=== PATIENT | female | born 1970 | race African-American/Black ===

== ENCOUNTER 2016-08-29 19:57 | Emergency (ER) ==
[2016-08-29] MEDS ORDERED: PHENERGAN IM ONE (22:29)
[2016-08-29] MEDS ORDERED: DILAUDID IM ONE (22:29)
--- NOTE | 2016-08-29 22:31 | PROVIDER DOCUMENTATION ---
HPI-Musculoskeletal Pain/Inj - GENERAL Chief Complaint: Neck Pain Stated Complaint: EXRREMITY PAIN(RIGHT SIDE) Time Seen by Provider: 08/29/16 22:26 - HX OF PRESENT ILLNESS-MUSKULOSKELTAL Nature of Presenting Problem: 46 yof chronic neck pain. Quality of Pain: reports: aching, sharp Severity in ED: moderate Onset/Duration: other (chronic) Timing: still present, getting worse Modifying Factors: improves with: analgesics Any recent injury?: No Locality of Occurance: Home Similar Symptoms Previously?: Yes (chronic pain) Recently seen or treated by another doctor?: No - FALL INJURY Location of Pain/Injury: reports: neck Pain Radiation: reports: arm(s) Reason for Fall: denies: unknown, fainted, lightheaded, lost balance, slipped, tripped, other - BACK & NECK PAIN/INJURY Back/Neck Pain Location: reports: C-spine Back/Neck Pain Radiation: reports: arm(s). denies: headache, shoulders, Buttocks, Upper Legs, Lower Legs, Feet, Other Context / Method of Injury: denies: unknown, direct blow, fall, lifting, motor vehicle crash, overuse, prior injury, twisted, other Associated Symptoms: reports: numbness in upper ext, weakness in upper ext. denies: denies symptoms, loss of bladder control, loss of bowel control, fever, lower back pain, muscle spasms, numbness in legs/feet, sensory/motor loss, tingling in legs/feet, tingling in upper ext, weakness in legs/feet, other History of Chronic Neck or Back Pain?: Yes - UPPER EXTREMITY PAIN/INJURY Extremities Pain Location: shoulder: left, arm: left Context / Method of Injury: denies: unknown, assault, burn, direct blow, fell, incised, motor vehicle accident, sports injury, twisted, other Associated Symptoms: reports: numbness in upper ext, weakness in upper ext. denies: denies symptoms, muscle spasms, sensory/motor loss, tingling in upper ext, other Review of Systems - Adult - REVIEW OF SYSTEMS - ADULT Constitutional: reports: see HPI. denies: no symptoms reported, chills, fever, fatique, night sweats, weight gain, weight loss, other Eyes: reports: no symptoms reported. denies: see HPI, discharge, dry eyes, decreased vision, blurred vision, double vision, eye pain, redness, other Ears, Nose, Mouth & Throat: reports: no symptoms reported. denies: see HPI, ear discharge, ear pain, hearing loss, tinnitus, epistaxis, sinus problem, nose pain, loose teeth, mouth/dental pain, mouth swelling, hoarseness, throat pain, throat swelling, other Cardiovascular: reports: no symptoms reported. denies: see HPI, chest pain, edema, heart murmur, irregular heart rate, orthopnea, palpitations, poor circulation, PND, syncope, other Respiratory: reports: no symptoms reported. denies: see HPI, chronic cough, cough, dyspnea on exertion, excessive sputum production, hemoptysis, pleurisy, shortness of breath, wheezing, other Gastrointestinal: reports: no symptoms reported. denies: see HPI, abdominal pain, hematemesis, constipation, diarrhea, difficulty swallowing, frequent heartburn, nausea, poor appetite, rectal bleeding, vomiting, other Genitourinary: reports: no symptoms reported. denies: see HPI, dysuria, discharge, frequency, flank pain, frequent UTI's, hematuria, hesitency, incontinence, urinary retention, urgency, other Musculoskeletal: reports: see HPI, neck pain. denies: no symptoms reported, bone pain, back pain, frequent leg cramps, joint pain, joint swelling, muscle aches, muscle weakness, other Integumentary: reports: no symptoms reported. denies: see HPI, hives, hair loss , itching, mole changes, nail changes, rash, skin sores/ulcer, skin thickening, other Neurological: reports: see HPI, numbness. denies: no symptoms reported, ataxia , dizziness/vertigo, headache/migraines, loss of balance, paresthesia, seizure, slurred speech, syncope, tremors, other All Other Systems: Reviewed and Negative Past History - Adult - PAST MEDICAL HISTORY-ADULT Review of Records: reports: Old Records Reviewed, Nursing Assessment Review, Medications Reviewed, Social history reviewed & non-contributory. Major Childhood Illnesses: reports: denies history Cardiovascular: reports: HTN Respiratory: reports: denies history Gastrointestinal: reports: denies history Obstetrical/Gynecological: reports: denies history Genitourinary: reports: denies history Musculoskeletal: reports: denies history Neurological: reports: denies history Psychiatric: reports: anxiety Endocrine/Immune: reports: denies history Other Conditions: reports: denies history - PRIOR SURGERIES/PROCEDURES Surgical/Procedure History: reports: none - PRIOR HOSPITALIZATIONS Prior Hospitalizations: reports: none - IMMUNIZATION STATUS Childhood Immunizations: UTD - FAMILY HISTORY Family History: reviewed, not pertinent Physical Exam-Injury Related - Physical Exam-Injury Related Initial Vital Signs Reviewed: Yes General Appearance: appears well, alert, no apparent distress. negative: mild distress, moderate distress, severe distress, cachetic, obese, thin, anxious, lethargic, slow to respond, obtunded, combative, other Immobilization?: negative: backboard, C-collar, applied in ED, applied [employer] Eyes: PERRL/EOMI, pink conjunctivae. negative: fundi clear, no AV nicking, anisocoria, conjuctival exudate, EOM palsy, meningismus, pale conjunctivae, photophobia, sclera injected, scleral icterus, subconjunctival hemorrhage, sunken eyes, other Head, Ears, Nose, Mouth & Throat: normocephalic/atraumatic, moist mucous membranes, normal ENT inspection, TMs normal, pharynx normal. negative: angioedema, dental decay, hearing deficit, pharyngeal erythema, tonsillar exudate, TM abnormal, TM obscurred by cerumen, frontal tenderness, maxillary tenderness, other Neck: full range of motion, supple, normal inspection, tender midline, vertebral point tenderness. negative: non-tender, pain with axial compression, Brudzinski's sign, carotid bruit, C-spine tenderness, decresed ROM, ecchymosis, limited range of motion, lymphadenopathy, muscle spasm, nexus criteria negative , pain on movement, subcutaneous emphysema, swelling, trachial deviation, tender lateral, thyromegaly, other Respiratory: chest non-tender, lungs clear, normal breath sounds, no pleuratic chest pain, no respiratory distress, no accessory muscle use. negative: respiratory distress, decreased breath sounds, accessory muscle use, crackles, rales, rhonchi, stridor, wheezing, dull on percussion, prolonged expiration, pain on inspiration, pleural rub, retractions, splinting, decreased rate, increased rate, crepitus, ecchymosis, flail chest, palpable fracture, paradoxical movements, rib tenderness, seat belt bruising, tenderness, other Cardiovascular: normal peripheral pulses, regular rate, rhythm, no edema, no gallop, no JVD, no murmur. negative: JVD, bradycardia, tachycardia, diastolic murmur, systolic murmur, gallop/S3, gallop/S4, extra beats, friction rub, irregularly irregular, PMI displaced laterally, other Chest/Breast: deferred Abdominal Exam: normal bowel sounds, non tender, soft, no organomegaly, no pulsatile mass. negative: abdominal bruit, abnormal bowel sounds, distended, guarding, rigid, rebound, tenderness, hernia, mass, hepatomegaly, spleenomegaly , McBurney's point tenderness, Rodas's sign, obturator sign, prominent aortic pulsations, psoas, Rovsing's sign, other Female Genitalia/Pelvic Exam: deferred Lymphatic: no adenopathy. negative: axilla node tender, cervical node tenderness, inguinal node tender, enlargement, striations, streaking, other Back Exam: normal inspection, no CVA tenderness, no vertebral tenderness. negative: CVA tenderness, decreased range of motion, ecchymosis, kyphosis, lordosis, muscle spasm, scoliosis, swelling, vertebral tenderness, other Extremity: normal range of motion, non-tender, normal gait, normal inspection, no pedal edema, no calf tenderness, normal capillary refill. negative: pelvis stable, abnormal NV exam, calf tenderness, deformity, erythema, inflammation, joint effusion, pulse deficit, pedal edema, slow capillary refill, swelling, tenderness, other Integumentary: normal color, warm/dry. negative: blanching, cyanosis, diaphoresis, decubitus, ecchymosis, embolic lesions, erythema, signs of IVDA, jaundice, mottled, pallor, petechiae, purpura, rash, swelling, tenderness, warm , zoster-like rash, abrasion, ashen, blistered, contusion(s), delong red, crepitus, laceration, puncture wound(s), white, other Neurologic: grossly normal Psych/Mental Status: oriented x 3 - Glascow Coma Score Best Eye Response ([place]): (4) open spontaneously Best Verbal Response ([place]): (5) oriented Best Motor Response ([place]): (6) obeys commands [place] Total: 15 Progress - PLAN OF CARE/RESULTS Progress/Plan/Lab Results: Orders Category Date Time Status Hydromorphone [Dilaudid] Med 08/29/16 22:29 Discontinued 1 mg IM NOW ONE Promethazine [Phenergan] Med 08/29/16 22:29 Discontinued 25 mg IM NOW ONE Vital Signs Temp Pulse Resp BP Pulse Ox 08/29/16 22:44 87 20 138/96 97 08/29/16 20:00 98.1 F 110 H 20 154/95 99 butorphanol tartrate * [From Stadol] Allergy (Verified 08/29/16 20:05) HIVES Penicillins Allergy (Verified 08/29/16 20:05) HIVES zolpidem tartrate * [From Ambien] Adverse Reaction (Verified 08/29/16 20:05) SWELLING Amlodipine [Norvasc] 10 mg PO DAILY 08/29/16 Diclofenac 1% Gel [Voltaren 1% Gel] 1 applicatn TOP DIRECTED 08/29/16 Gabapentin 100 mg PO DIRECTED 08/29/16 Hydrochlorothiazide 25 mg PO DAILY 08/29/16 Hydrocodone/APAP 7.5 mg/325 mg [[place]demona-7.5] 1 each PO Q6H PRN PRN #10 tablet 05/07 Ketorolac [Toradol] 10 mg PO Q8H PRN PRN #14 tablet 08/29/16 Departure - Departure Time of Disposition Order: 22:29 DIAGNOSIS: Chronic neck pain Disposition: HOME 01 Certified Medical Emergency: Emergent Condition: Stable Additional Instructions: ED Follow Up Instructions: You have been treated by a care provider in the Emergency Department. These instructions are being provided to you so you can have an understanding of how to care for yourself upon discharge. Upon discharge from the Emergency Department, you are responsible for making arrangements for follow-up care by a physician of your choice. Take all prescribed medications as directed. Return to the Emergency Department immediately for any new or worsening symptoms. You may call the Physician Referral phone number at [phone] to obtain a list of Physicians who are taking new patients. Prescriptions: Hydrocodone/APAP 7.5 mg/325 mg [[place]-7.5] 1 each PO Q6H PRN PRN #10 tablet PRN Reason: Pain Ketorolac [Toradol] 10 mg PO Q8H PRN PRN #14 tablet PRN Reason: Pain Referrals: Boston Brown MD [STAFF PHYSICIAN] - None,PCP [Primary Care Provider] - Forms: Return to School/Parent Work Instructions: Acetaminophen; Hydrocodone tablets or capsules, Cervical Sprain, Ketorolac tablets Attestation - Physician/ SUHAIL Attestation Patient care was provided by Advanced Practice Provider:: Yes Advanced Practice Provider:: Chi Nazario Advanced Practice Provider documentation review:: The Mid-level provider documentation, treatment plan and medical decision making was reviewed by the physician who agrees with all treatment and medical decision making by the MLP. Physician Attestation - Physician Attestation I, the provider, attest to the following statement:: Chi Nazario Physician documentation Attestation:: This documentation recorded by the scribe accurately reflects the service I personally performed and the decisions made by me.
[2016-08-29 22:44] VITALS: BP 138/96
== END 2016-08-29 22:53 | disposition home or self-care (01) ==
LOC: P.ED 19:57
DX: M54.2 Cervicalgia (principal); G89.29 Other chronic pain; R20.0 Anesthesia of skin; R53.1 Weakness; I10 Essential (primary) hypertension; Z79.899 Other long term (current) drug therapy
CPT/HCPCS: 96372; J1170; J2550